=== PATIENT | male | born 1970 | race Hispanic/Latino ===

== ENCOUNTER 2018-11-04 09:02 | Emergency (ER) | payer SELFPAY ==
[2018-11-04 09:14] VITALS: BP 142/97
--- NOTE | 2018-11-04 11:04 | Emergency Department Report ---
ED General Adult HPI - General Chief complaint: Pain General Stated complaint: RT KNEE/LFT HAND GOUT Time Seen by Provider: 11/04/18 09:56 Source: patient Mode of arrival: Wheelchair Limitations: Physical Limitation - History of Present Illness Initial comments: This is a 48-year-old male who presents to the emergency room with right knee pain and left wrist pain for one week. Past medical history of gout. Patient states he ate a steak last week and his symptoms started the next day. He continues to take allopurinol and NSAIDs when no improvement is pain. Patient reports pain is worse with weightbearing or movement. Patient states he can't tolerate anyone touching his right ankle. Patient denies recent injury, numbness or tingling, weakness, or seizures. Onset/Timin -: week(s) Location: upper extremity (left wrist, 1st, & 2nd digits), lower extremity (right) Severity scale (0 -10): 10 Quality: aching Consistency: constant Improves with: none Worsens with: movement, other (weight bearing) Associated Symptoms: denies other symptoms Treatments Prior to Arrival: NSAID - Related Data Previous Rx's Medication Instructions Recorded Last Taken Type Indomethacin 50 mg PO Q8H PRN #20 capsule 11/04/18 Unknown Rx methylPREDNISolone [Medrol 4MG 4 mg PO DAILY #1 tab.ds.pk 11/04/18 Unknown Rx DOSEPAK (21 tabs)] Allergies Allergy/AdvReac Type Severity Reaction Status Date / Time No Known Allergies Allergy Unverified 11/04/18 09:08 ED Review of Systems ROS: Stated complaint: RT KNEE/LFT HAND GOUT Other details as noted in HPI Constitutional: denies: chills, fever Respiratory: denies: cough, shortness of breath, wheezing Cardiovascular: denies: chest pain, palpitations Gastrointestinal: denies: abdominal pain, nausea, diarrhea Musculoskeletal: joint swelling (left wrist, 1st, & 2nd digits), arthralgia (right knee and ankle). denies: back pain Skin: denies: rash, lesions Neurological: denies: headache, weakness, paresthesias Psychiatric: denies: anxiety, depression ED Past Medical Hx - Past Medical History Previous Medical History?: Yes Additional medical history: GOUT - Surgical History Past Surgical History?: No - Social History Smoking Status: Never Smoker Substance Use Type: None - Medications Home Medications: Home Medications Medication Instructions Recorded Confirmed Last Taken Type Indomethacin 50 mg PO Q8H PRN #20 capsule 11/04/18 Unknown Rx methylPREDNISolone [Medrol 4MG 4 mg PO DAILY #1 tab.ds.pk 11/04/18 Unknown Rx DOSEPAK (21 tabs)] ED Physical Exam - General Limitations: Physical Limitation General appearance: alert, in no apparent distress, obese - Respiratory Respiratory exam: Present: normal lung sounds bilaterally. Absent: respiratory distress - Cardiovascular Cardiovascular Exam: Present: regular rate, normal rhythm. Absent: systolic murmur, diastolic murmur, rubs, gallop - GI/Abdominal GI/Abdominal exam: Present: soft, normal bowel sounds - Extremities Exam Extremities exam: Present: full ROM, normal capillary refill. Absent: calf tenderness - Expanded Upper Extremity Exam Left Shoulder Exam: Present: normal inspection, full ROM Upper Arm exam: Present: normal inspection, full ROM Elbow exam: Present: normal inspection, full ROM Forearm Wrist exam: Present: tenderness, swelling, crepidus. Absent: full ROM (limited 2/2 pain), abrasion, laceration, ecchymosis, deformity, dislocation, erythema, tenderness over anatomical snuff box, pain with axial thumb loading Hand Wrist exam: Present: tenderness (tenderness and swelling over 1st & 2nd PIPs), swelling. Absent: full ROM (limited ROM and pain with movement), abrasion, laceration, ecchymosis, deformity, dislocation, erythema, amputation, nail avulsion, subungual hematoma Neuro motor exam: Present: wrist extension intact, thumb opposition intact, thumb IP flexion intact, thumb adduction intact, fingers 2-5 abduction intact Neurosensory exam: Present: radial nerve intact, ulnar nerve intact, median nerve intact Vascular: Present: normal capillary refill, radial pulse - Expanded Lower Extremity Exam Right Hip exam: Present: normal inspection, full ROM Upper Leg exam: Present: normal inspection, full ROM Knee exam: Present: tenderness (over lateral patella), swelling (lateral patella), crepidus, pain w/ pronation/supination, full knee extension. Absent: full ROM (pain with ROM), abrasion, laceration, ecchymosis, deformity, dislocation, erythema, effusion, posterior draw sign Lower Leg exam: Present: normal inspection, full ROM Ankle exam: Present: tenderness, swelling, crepidus. Absent: full ROM (limited 2/2 pain), abrasion, laceration, ecchymosis, deformity, dislocation, erythema, anterior draw sign Foot/Toe exam: Present: normal inspection, full ROM Neuro vascular tendon exam: Present: no vascular compromise Gait: Positive: observed and limited by pain - Neurological Exam Neurological exam: Present: alert, oriented X3 - Psychiatric Psychiatric exam: Present: normal affect, normal mood - Skin Skin exam: Present: warm, dry, intact, normal color. Absent: rash ED Course Vital Signs 11/04/18 09:13 Temperature 97.8 F Pulse Rate 97 H Respiratory 18 Rate Blood Pressure 142/97 O2 Sat by Pulse 99 Oximetry ED Medical Decision Making - Medical Decision Making Patient is stable and examined by me. Hx of gout. No acute signs of distress noted. There is swelling to multiple joints and pain with ROM with suspicion for gout flare. No labs drawn Given dexamethasone and norco in ER for gout. Discussed plan to start prednisone taper and indomethacin 50 mg po tid with patient. Educated patient and spouse on low purine diet and given handout. Patient agrees to ED plan of care. Discharged home and follow up with PCP in 3 days. Critical care attestation.: If time is entered above; I have spent that time in minutes in the direct care of this critically ill patient, excluding procedure time. ED Disposition Clinical Impression: Joint pain Qualifiers: Joint pain location: unspecified Qualified Code(s): M25.50 - Pain in unspecified joint Gout attack Qualifiers: Gout site: multiple sites Gout etiology: idiopathic Qualified Code(s): M10.09 - Idiopathic gout, multiple sites Disposition: TO HOME OR SELFCARE Is pt being admited?: No Does the pt Need Aspirin: No Condition: Stable Instructions: Acute Gouty Arthritis (ED), Self-Care Measures with a Chronic Disease (ED), Low Purine Diet (ED) Additional Instructions: Avoid foods that have a high purine content such as alcohol, organ meats, and seafood can cause higher risk of elevated uric acid and gout. Reduce intake of alcohol, especially beer, lowers the risk of gout. Reduce the intake of vegetables high in purines such as asparagus, spinach, and mushrooms. Dairy products reduce the risk of gout. Follow up with primary care provider in 2-3 days. Prescriptions: Indomethacin 50 mg PO Q8H PRN #20 capsule PRN Reason: Pain , Severe (7-10) methylPREDNISolone [Medrol 4MG DOSEPAK (21 tabs)] 4 mg PO DAILY #1 tab.ds.pk Referrals: [facility] [Outside] - 3-5 Days [facility] [Outside] - 3-5 Days [facility] [Outside] - 3-5 Days Forms: Work/School Release Form(ED) Time of Disposition: 11:16
[2018-11-04] MEDS ORDERED: NORCO 5/325 PO ONE (11:06)
[2018-11-04] MEDS ORDERED: DECADRON IM ONE (11:06)
== END 2018-11-04 11:47 | disposition home or self-care (01) ==
LOC: ED 09:02
DX: M10.09 Idiopathic gout, multiple sites (principal); M25.50 Pain in unspecified joint
CPT/HCPCS: 96372; 99282; J1100